=== PATIENT | female | born 1995 | race Caucasian/White ===

== ENCOUNTER 2020-03-23 10:44 | Inpatient (IN) | payer MEDICAID, OTHER ==
[~2020-03-23] VITALS: Ht 160 cm; Wt 59.7 kg
[~2020-03-23 10:44] MED LIST: PNV1TABL54 PO
[2020-03-23 11:11] LABS: BASOPHILS % (AUTO) 0.2 % (0.0-2.0); EOSINOPHILS % (AUTO) 0.1 % (1.0-6.0); HEMATOCRIT 41.9 % (36-46); HEMOGLOBIN 13.9 g/dL (12.0-16.0); LYMPHOCYTES # (AUTO) 0.6 K/uL (1.0-4.8); LYMPHOCYTES % (AUTO) 4.9 % (22.0-44.0); MEAN CORPUSCULAR HGB CONC 33.1 G/dL (31.0-37.0); MEAN CORPUSCULAR VOLUME 91 fL (80-100); MONOCYTES # (AUTO) 0.4 K/uL (0.1-1.0); PLATELET COUNT (AUTO) 324 K/uL (150-450); RED BLOOD CELL COUNT(AUTO) 4.62 MIL/uL (4.00-5.20); RED CELL DISTRIBUTION WIDTH 15.1 % (11.5-14.5)
[2020-03-23 11:12] LABS: NEUTROPHILS % (AUTO) 91.8 % (40.0-70.0)
[2020-03-23 11:27] LABS: ANION GAP 9 mmol/L (8-16); CALCIUM, TOTAL 8.7 mg/dL (8.8-10.5); CARBON DIOXIDE 26 mmol/L (22-29); CHLORIDE 104 mmol/L (98-107); CREATININE 0.82 mg/dL (0.60-1.30); GLOMERULAR FILTR. RATE CALC > 60 mL/min (>60); GLUCOSE,RANDOM 120 mg/dL (70-110); SODIUM SERUM 139 mmol/L (136-145); UREA NITROGEN, BLOOD 11 mg/dL (7-18)
[2020-03-23 11:28] LABS: SALICYLATE 1.1 mg/dL (2.8-20.0)
[2020-03-23 11:49] LABS: ALANINE AMINOTRANSFERASE 24 U/L (12-78); ALKALINE PHOSPHATASE 120 U/L (46-116); ASPARTATE AMINOTRANSFERASE 26 U/L (15-37); BILIRUBIN,TOTAL 0.6 mg/dL (0.1-1.0); HCG,QUANTITATIVE < 1 mIU/mL (0-6); TOTAL PROTEIN, SERUM 7.8 g/dL (6.4-8.2)
[2020-03-23 11:51] LABS: ACETAMINOPHEN < 2 mcg/mL (10-30)
[2020-03-23 12:24] LABS: APPEARANCE,URINE CLEAR (CLEAR); BILIRUBIN,URINE NEGATIVE (NEGATIVE); GLUCOSE, URINE (UA) NEGATIVE (NEGATIVE); KETONES,URINE 15 mg/dL (NEGATIVE); LEUKOCYTE ESTERASE ,URINE SMALL (NEGATIVE); NITRATE,URINE NEGATIVE (NEGATIVE); OCCULT BLOOD,URINE TRACE (NEGATIVE); PROTEIN,URINE NEGATIVE (NEGATIVE); UROBILINOGEN,URINE 0.2 mg/dL (<=1.0)
[2020-03-23 12:32] LABS: AMPHET/METH SCREEN,URINE NEGATIVE (NEGATIVE); BARBITURATE SCREEN, URINE NEGATIVE (NEGATIVE); BENZODIAZEPINES SCREEN,URINE NEGATIVE (NEGATIVE); CANNABINOID SCREEN,URINE POSITIVE (NEGATIVE); COCAINE SCREEN,URINE NEGATIVE (NEGATIVE); METHADONE SCREEN, URINE NEGATIVE (NEGATIVE); OPIATE SCREEN,URINE NEGATIVE (NEGATIVE); PHENCYCLIDINE SCREEN,URINE NEGATIVE (NEGATIVE)
[2020-03-23] MEDS ORDERED: ZOLPIDEM TARTRATE 10 MG TABLET PO PRN (13:00)
[2020-03-23] MEDS ORDERED: HALOPERIDOL 5 MG TABLET PO PRN (13:00)
[2020-03-23 13:04] LABS: BACTERIA,URINE None Seen /HPF (None Seen); RBC,URINE 0-2 /HPF (0-2); SQUAMOUS EPITHELIAL CELL,UR Rare /LPF (None Seen)
[2020-03-23 13:50] LABS: COVID AG,FIA SOURCE NASAL SWAB
[2020-03-23] MEDS ORDERED: ALBUTEROL SULFATE HFA 90 MCG/PUFF 8 GM INHALER IH PRN (17:00)
[2020-03-23] MEDS ORDERED: DOCUSATE SODIUM 100 MG CAPSULE PO PRN (17:00)
[2020-03-23] MEDS ORDERED: GuaiFENesin/D-METHORPHAN [SUGAR-FREE] 200-20MG/10 ML SYRUP UDCUP PO PRN (17:00)
[2020-03-23] MEDS ORDERED: MAG HYDROX/AL HYDROX/SIMETH ES 30 ML SUSPENSION UDCUP PO PRN (17:00)
[2020-03-23] MEDS ORDERED: MAGNESIUM HYDROXIDE SUSPENSION 30 ML UDCUP PO PRN (17:00)
[2020-03-23] MEDS ORDERED: NICOTINE 14 MG/24 HOUR PATCH TD PRN (17:00)
[2020-03-23] MEDS ORDERED: IBUPROFEN 400 MG TABLET PO PRN (17:00)
[2020-03-23] MEDS ORDERED: LOPERAMIDE HCL 2 MG CAPSULE PO PRN (17:00)
[2020-03-23] MEDS ORDERED: ACETAMINOPHEN 325 MG TABLET PO PRN (17:00)
[2020-03-23] MEDS ORDERED: CloNIDine HCL 0.1 MG TABLET PO PRN (17:00)
[2020-03-23] MEDS ORDERED: PETROLATUM,WHITE 28 GM JELLY TP PRN (17:00)
[2020-03-23] MEDS ORDERED: ONDANSETRON HCL 4 MG TABLET PO PRN (17:00)
[2020-03-23 17:30] VITALS: BP 118/64
[2020-03-23 22:08] VITALS: BP 122/78
[2020-03-24 07:15] LABS: CHOL/HDL RATIO 2.8 (3.9-5.7)
[2020-03-24 09:13] VITALS: BP 105/59
[2020-03-24] MEDS: MULTIVITAMINS WITH MINERALS, THERAPEUTIC TABLET PO SCH (10:00)
[2020-03-24] MEDS: MUPIROCIN CALCIUM 2% 15 GM CREAM TP SCH (12:42)
[2020-03-24 16:03] VITALS: BP 115/55
[2020-03-24] MEDS: LORazepam 2 MG TABLET PO PRN (17:50)
[2020-03-25 08:39] VITALS: BP 122/69
[2020-03-25] MEDS: LORazepam 2 MG TABLET PO PRN (08:56)
[2020-03-25] MEDS: MULTIVITAMINS WITH MINERALS, THERAPEUTIC TABLET PO SCH (08:59)
[2020-03-25] MEDS: SERTRALINE HCL 50 MG TABLET PO SCH (08:59)
[2020-03-25] MEDS: MUPIROCIN CALCIUM 2% 15 GM CREAM TP SCH (14:26)
[2020-03-25 16:26] VITALS: BP 119/74
[2020-03-26] MEDS: SERTRALINE HCL 50 MG TABLET PO SCH (08:43)
[2020-03-26] MEDS: MULTIVITAMINS WITH MINERALS, THERAPEUTIC TABLET PO SCH (08:43)
[2020-03-26] MEDS: MUPIROCIN CALCIUM 2% 15 GM CREAM TP SCH (09:00)
[2020-03-26] MEDS ORDERED: SERT50TA12 PO (10:12)
[2020-03-26] MEDS ORDERED: MUPI1OIN5 TP (10:45)
[2020-03-26] MEDS ORDERED: MULT-1239 PO (10:47)
== END 2020-03-26 11:10 | disposition home or self-care (01) | DRG 751 ==
LOC: EMS 10:45 → 3EI 15:42 → UNDOADMIN 15:42 → 3EI 17:07 → UNDOADMIN 03-24 12:49 → 3EI 03-24 12:49
DX: F33.2 Major depressive disorder, recurrent severe without psychotic features (principal); F12.10 Cannabis abuse, uncomplicated; Z79.899 Other long term (current) drug therapy; Z03.818 Encounter for observation for suspected exposure to other biological agents ruled out
CPT/HCPCS: 87426; 93005; 99291; G0480; G0481; Q0162